=== PATIENT | female | born 1940 | race Caucasian/White ===

== ENCOUNTER 2024-04-29 08:13 | Inpatient (IN) ==
--- NOTE | 2024-01-17 11:53 | PAT Medication Instructions ---
Medication Instructions Date of Service January 17, 2024 Home Medications ascorbic acid (vitamin C) 1,000 mg tablet (Vitamin C) 1 g PO QAM calcium 600 mg (as carbonate)-vitamin D3 5 mcg (200 unit) tablet 1 tab PO QAM cholecalciferol (vitamin D3) 25 mcg (1,000 unit) tablet (Vitamin D3) 25 mcg PO TID cyanocobalamin (vitamin B-12) 1,000 mcg tablet (Vitamin B-12) 1,000 mcg PO QAM denosumab 60 mg/mL subcutaneous syringe (Prolia) 60 mg subcut UD ezetimibe 10 mg tablet 10 mg PO HS gabapentin 600 mg tablet 600 mg PO QPM irbesartan 150 mg-hydrochlorothiazide 12.5 mg tablet 1 tab PO QAM lactobacillus combination no.4 3 billion cell capsule (Probiotic) 3,000 mmu cells PO QAM pravastatin 20 mg tablet 20 mg PO QAM prednisolone acetate 1 % eye drops,suspension (Pred Forte) 1 drp ophthalmic (eye) UD valacyclovir 1 gram tablet 1,000 mg PO QPM Continue as directed denosumab 60 mg/mL subcutaneous syringe (Prolia) 60 mg subcut UD prednisolone acetate 1 % eye drops,suspension (Pred Forte) 1 drp ophthalmic (eye) UD DO NOT take the morning of surgery ascorbic acid (vitamin C) 1,000 mg tablet (Vitamin C) 1 g PO QAM calcium 600 mg (as carbonate)-vitamin D3 5 mcg (200 unit) tablet 1 tab PO QAM cholecalciferol (vitamin D3) 25 mcg (1,000 unit) tablet (Vitamin D3) 25 mcg PO TID cyanocobalamin (vitamin B-12) 1,000 mcg tablet (Vitamin B-12) 1,000 mcg PO QAM irbesartan 150 mg-hydrochlorothiazide 12.5 mg tablet 1 tab PO QAM lactobacillus combination no.4 3 billion cell capsule (Probiotic) 3,000 mmu cells PO QAM Take morning of surgery With a small sip of water, OTHERWISE NOTHING TO EAT OR DRINK AFTER MIDNIGHT: pravastatin 20 mg tablet 20 mg PO QAM Take evening before surgery cholecalciferol (vitamin D3) 25 mcg (1,000 unit) tablet (Vitamin D3) 25 mcg PO TID ezetimibe 10 mg tablet 10 mg PO HS gabapentin 600 mg tablet 600 mg PO QPM valacyclovir 1 gram tablet 1,000 mg PO QPM Other Notes If you have any questions please call us at [phone] or [phone] or [phone] or [phone]
--- NOTE | 2024-01-23 12:53 | Anesthesiology Consultation ---
Date of Service January 23, 2024 Assessment & Plan (1) Encounter for pre-operative examination: Infectious disease screening: Per assessment on 01/23/24- No known recent infectious disease contacts or current infectious disease symptoms. Chart Review Chart Review: Acceptable Risk for Surgery and Patient seen in Pre Admission Testing Teaching & Discussion Pre-Anesthesia Teaching/Discussion Notes: Instructed NPO after midnight before surgery,except medications with 15 cc of water. Medication instructions provided according to the PAT guidelines. History Surgery Operation Date: 02/22/24 11:25 Proposed Procedures p L5-S1 Decompression and Fusion with Spinal Cord Monitoring - Rene Estrada, Height/Weight Height: 5 ft 5 in Weight: 57.9 kg Allergies Allergy/AdvReac Type Severity Reaction Status Date / Time Penicillins Allergy Unknown Hives Verified 01/17/24 08:24 Medications Home Medications Medication Instructions Recorded Confirmed Last Taken ascorbic acid (vitamin C) 1,000 mg 1 g PO QAM 01/17/24 01/17/24 Unknown tablet (Vitamin C) calcium 600 mg (as 1 tab PO QAM 01/17/24 01/17/24 Unknown carbonate)-vitamin D3 5 mcg (200 unit) tablet cholecalciferol (vitamin D3) 25 25 mcg PO TID 01/17/24 01/17/24 Unknown mcg (1,000 unit) tablet (Vitamin D3) cyanocobalamin (vitamin B-12) 1,000 mcg PO QAM 01/17/24 01/17/24 Unknown 1,000 mcg tablet (Vitamin B-12) denosumab 60 mg/mL subcutaneous 60 mg subcut UD 01/17/24 01/17/24 Unknown syringe (Prolia) ezetimibe 10 mg tablet 10 mg PO HS 01/17/24 01/17/24 Unknown gabapentin 600 mg tablet 600 mg PO QPM 01/17/24 01/17/24 Unknown irbesartan 150 1 tab PO QAM 01/17/24 01/17/24 Unknown mg-hydrochlorothiazide 12.5 mg tablet lactobacillus combination no.4 3 3,000 mmu cells PO QAM 01/17/24 01/17/24 Unknown billion cell capsule (Probiotic) pravastatin 20 mg tablet 20 mg PO QAM 01/17/24 01/17/24 Unknown prednisolone acetate 1 % eye 1 drp ophthalmic (eye) UD 01/17/24 01/17/24 Unknown drops,suspension (Pred Forte) valacyclovir 1 gram tablet 1,000 mg PO QPM 01/17/24 01/17/24 Unknown Past Medical History Medical History Blindness Right eye, due to repeated herpes infection/ulcer Hypercholesterolemia Hypertension Osteoarthritis Exercise / Class Metabolic Activity II 4-5 Yardwork/Stairs/Walk up hill (one FS: No CP, no SOB) Past Surgical History Surgical History History of appendectomy History of eye surgery Right corneal transplant Follows with Dr Rhoades/DIXIE Craig History of tonsillectomy Past Anesthesia History No Hx of Anesthesia Complications and No Family Hx of Anesthesia Complications History of PONV No Hx of PONV and No Hx of Motion Sickness Social History Smoking Status: Never smoker Do You Dip or Chew Tobacco: No Hx Alcohol Use: Yes Alcohol type: wine alcohol intake frequency: 0-2 drinks per day (1 drink/day) Hx Substance Use: No substance use type: does not use Review of Systems Patient denies chest pain, shortness of breath, dyspnea on exertion, fever, chills, cough, wheezing. Physical Exam Vital Signs BP 122/69 P 64 TEMP 98.5 SP02 95%RA RESP 16 Physical Full cervical extension range of motion. Full TMJ range of motion. TMD 2.5 finger breaths (small chin) Mallampati Score II Dentition: intact, several caps Lungs: clear throughout to auscultation Cardiac: regular rate and rhythm, no murmurs noted Spine: normal Carotid arteries: negative bruit Extremities: no LE edema Lab Results Anesthesia Preop Results Results Anesthesia Widget: WBC 12.21 K/ul (4.8-10.8) H 01/23/24 Hgb 12.4 g/dl (12.0-16.0) 01/23/24 Hct 37.3 % (37.0-47.0) 01/23/24 Plt 377 K/uL (130-400) 01/23/24 Na 137 mmol/L (136-145) 01/23/24 K 4.9 mmol/L (3.5-5.1) 01/23/24 Cl 100 mmol/L (98-107) 01/23/24 CO2 32 mmol/L (21-32) 01/23/24 BUN 33 mg/dl (6-23) H 01/23/24 Creat 1.13 mg/dl (0.6-1.2) 01/23/24 Glucose Level 113 mg/dl (70-99(Fasting)) H 01/23/24 PT 10.0 Seconds (9.0-12.0) 01/23/24 PTT 23 Seconds (21-31) 01/23/24 INR 0.9 (0.9-1.1) 01/23/24 Urine Color Yellow 01/23/24 Urine Appearance Clear (Clear) 01/23/24 Urine pH 6.5 (4.5-7.5) 01/23/24 Urine Specific [place] 1.016 (1.000-1.030) 01/23/24 Urine Protein Negative (Negative) 01/23/24 Urine Glucose (UA) Negative (Negative) 01/23/24 Urine Ketones Negative (Negative) 01/23/24 Urine Blood Negative (Negative) 01/23/24 Urine Nitrite Negative (Negative) 01/23/24 Urine Bilirubin Negative (Negative) 01/23/24 Urine Urobilinogen Negative (Negative) 01/23/24 Urine Leukocyte Esterase 2+ (Negative) H 01/23/24 Urine WBC (Auto) 6-10 /hpf (0-5) H 01/23/24 Urine RBC (Auto) 0-2 /hpf (0-2) 01/23/24 Urine Hyaline Casts (Auto) 0-2 /lpf (0-2) 01/23/24 Urine Epithelial Cells (Auto) 0-2 /hpf (0-2) 01/23/24 Urine Bacteria (Auto) None Seen (None Seen) 01/23/24 Blood Type AB Positive 01/23/24 Antibody Screen NEGATIVE 01/23/24 Testing Laboratory Results Surgeon's office made aware of elevated WBC* Electrocardiogram Date: 10/31/23 SR with occasional PVCs at 79bpm. Possible LAE. Septal PA, probably old. Chest X-Ray Date: 01/23/24 FINDINGS: The lungs are hyperinflated. Cardiomediastinal silhouette is within normal limits. No pleural effusion or pneumothorax. Atherosclerotic plaque about the aortic arch. IMPRESSION: Hyperinflated lungs compatible with changes of COPD. No acute cardiopulmonary findings.
[~2024-04-29 08:13] MED LIST: ACETAMINOPHEN 500 MG TAB PO SCH; CeleBREX 200 MG CAP PO SCH; GABAPENTIN 300 MG CAP PO SCH; LR 15ML/HR IV SCH; LR 60ML/HR IV SCH; VANCOMYCIN HCL 1,000 MG/270 ML BAG IV SCH
[2024-04-29] MEDS ORDERED: LIDOCAINE 2% 2 ML VIAL/AMP(20MG/ML) INFIL ONE (08:39)
[2024-04-29] MEDS ORDERED: DEXAMETHASONE SOD INJ 4 MG/ML VIAL ONE (08:39)
[2024-04-29] MEDS ORDERED: fentaNYL citrate PF 100 MCG/2 ML VIAL ONE (08:40)
[2024-04-29] MEDS ORDERED: PROPOFOL IV EMULSION 10 MG/ML 20 ML VIAL IV ONE (08:40)
[2024-04-29] MEDS ORDERED: ONDANSETRON INJ 2 MG/ML 2 ML VIAL ONE (08:40)
[2024-04-29] MEDS ORDERED: ROCURONIUM BROMIDE 10 MG/ML 5 ML VIAL IV ONE (08:40)
[2024-04-29 09:07] LABS: Basophils # (auto) 0.05 K/uL (0.00-0.20); Basophils % (auto) 0.4 %; Eosinophils # (auto) 0.13 K/uL (0.00-0.50); Eosinophils % (auto) 1.1 %; Hematocrit (blood only) 39.8 % (37.0-47.0); Hemoglobin 13.4 g/dl (12.0-16.0); Immature Granulocytes # (auto) 0.04 K/uL (0.01-0.20); Immature Granulocytes % (auto) 0.3 %; Lymphocytes # (auto) 2.01 K/uL (1.20-3.40); Lymphocytes % (auto) 17.2 %; Mean Corpuscular Hemoglobin 32.1 pg (25.0-34.0); Mean Corpuscular Hgb Conc 33.7 g/dL (32.0-36.0); Mean Corpuscular Volume 95.4 fL (80.0-100.0); Mean Platelet Volume 8.5 fL (9.4-12.4); Monocytes # (auto) 0.79 K/uL (0.11-0.59); Monocytes % (auto) 6.7 %; Neutrophils # (auto) 8.69 K/uL (1.40-6.50); Neutrophils % (auto) 74.3 %; Platelet Count 332 K/uL (130-400); RDW Coefficient of Variation 12.5 % (11.5-14.5); RDW Standard Deviation 43.7 fL (36.4-46.3); Red Blood Count 4.17 M/uL (4.20-5.40); White Blood Count 11.71 K/ul (4.8-10.8)
[2024-04-29] MEDS: VANCOMYCIN HCL 1,000 MG/270 ML BAG IV SCH (09:08)
[2024-04-29] MEDS: CeleBREX 200 MG CAP PO SCH (09:08)
[2024-04-29] MEDS: GABAPENTIN 300 MG CAP PO SCH (09:08)
[2024-04-29] MEDS: LR 60ML/HR IV SCH (09:08)
[2024-04-29] MEDS: ACETAMINOPHEN 500 MG TAB PO SCH (09:08)
[2024-04-29 09:23] LABS: INR 0.9 (0.9-1.1); Partial Thromboplastin Ratio 0.9; Partial Thromboplastin Time 24 Seconds (21-31); Prothrombin Time 10.2 Seconds (9.0-12.0)
[2024-04-29] MEDS ORDERED: ONDANSETRON INJ 2 MG/ML 2 ML VIAL IV PRN ×2 (09:36→14:46)
[2024-04-29] MEDS ORDERED: fentaNYL citrate PF 100 MCG/2 ML VIAL IV PRN (09:36)
[2024-04-29] MEDS ORDERED: ATROPINE SULFATE 0.1 MG/ML 10ML SYR IV PRN (09:36)
[2024-04-29] MEDS ORDERED: ePHEDrine sulfate 50 MG/ML AMP IV PRN (09:36)
[2024-04-29] MEDS ORDERED: HYDROmorphone INJ 1 MG/ML SYRINGE IV PRN ×2 (09:36→14:46)
[2024-04-29 09:42] LABS: BUN Creatinine Ratio 22.3 (10-20); Calcium 9.5 mg/dl (8.6-10.3); Creatinine Clr Calc Pharmacy 39.4 ml/min; Potassium 3.9 mmol/L (3.5-5.1)
--- NOTE | 2024-04-29 11:07 | History & Physical Bridge Note ---
Date of Service April 29, 2024 History & Physical Bridge Note I have examined the patient, reviewed the History & Physical and in the interval since the performance of the History & Physical I have noted the following changes of clinical significance: no changes noted
--- NOTE | 2024-04-29 11:08 | History & Physical Report ---
Date of Service April 29, 2024 Assessment & Plan (1) Lumbosacral spondylosis with radiculopathy: Plan: L5-S1 decompression and fusion History of Present Illness Chief Complaint: Back and leg pain Primary Care Provider: Cinthya Rider PA-C This is an 84-year-old female who presents with chronic persistent back and leg pain after failing course of nonoperative care is here for surgical invention. Allergies Allergy/AdvReac Type Severity Reaction Status Date / Time Penicillins Allergy Severe Hives Verified 04/29/24 09:02 Home Medications Medication Instructions Recorded Confirmed Type ascorbic acid (vitamin C) 1,000 mg 1 g PO QPM 01/17/24 04/29/24 History tablet (Vitamin C) calcium 600 mg (as 1 tab PO QAM 01/17/24 04/29/24 History carbonate)-vitamin D3 5 mcg (200 unit) tablet cyanocobalamin (vitamin B-12) 1,000 mcg PO QPM 01/17/24 04/29/24 History 1,000 mcg tablet (Vitamin B-12) denosumab 60 mg/mL subcutaneous 60 mg subcut UD 01/17/24 04/29/24 History syringe (Prolia) ezetimibe 10 mg tablet 10 mg PO HS 01/17/24 04/29/24 History gabapentin 600 mg tablet 600 mg PO QAM 01/17/24 04/29/24 History irbesartan 150 1 tab PO QAM 01/17/24 04/29/24 History mg-hydrochlorothiazide 12.5 mg tablet lactobacillus combination no.4 3 3,000 mmu cells PO QAM 01/17/24 04/29/24 History billion cell capsule (Probiotic) pravastatin 20 mg tablet 20 mg PO QAM 01/17/24 04/29/24 History prednisolone acetate 1 % eye 1 drp ophthalmic (eye) UD 01/17/24 04/29/24 History drops,suspension (Pred Forte) valacyclovir 1 gram tablet 1,000 mg PO QAM 01/17/24 04/29/24 History carboxymethylcellulose sodium 1 % 2 drp ophthalmic (eye) BID PRN Dry 04/16/24 04/29/24 History eye liquid gel drops Eyes cholecalciferol (vitamin D3) 125 125 mcg PO BID 04/16/24 04/29/24 History mcg (5,000 unit) tablet (Vitamin D3) gabapentin 600 mg tablet 1,200 mg PO QDL 04/16/24 04/29/24 History gabapentin 600 mg tablet 600 mg PO HS 04/16/24 04/29/24 History Past Med/Surg History Problem List (Updated 04/29/24 @ 11:08 by Rene Estrada DO) Lumbosacral spondylosis with radiculopathy Medical History (Updated 04/29/24 @ 11:08 by Rene Estrada DO) Spinal stenosis Chronic back pain Osteoarthritis Blindness Right eye, due to repeated herpes infection/ulcer Hypercholesterolemia Hypertension Surgical History S/P epidural steroid injection Hx of hysterectomy History of tonsillectomy History of appendectomy History of eye surgery Right corneal transplant Follows with Dr Rhoades/DIXIE Craig Family History Other No family history of adverse response to anesthesia Social History Smoking Status: Never smoker Second Hand Exposure: No; Do You Dip or Chew Tobacco: No; Tobacco Cessation Education Requested by Patient: No Hx Alcohol Use: Yes Alcohol type: wine Hx Substance Use: No Preferred Language: Frisian Communication Ability: Effective 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
[2024-04-29] MEDS: ceFAZolin 330 MG/ML 1 GM VIAL ONE (12:02)
[2024-04-29] MEDS: BUPIVACAINE/EPINEPHRINE 0.5% MPF 1:200,000 30 ML VIAL ONE (12:02)
[2024-04-29] MEDS ORDERED: ePHEDrine sulfate 50 MG/5 ML SYR ONE (12:17)
[2024-04-29] MEDS ORDERED: SUGAMMADEX SODIUM 200 MG/2 ML VIAL IV ONE (12:39)
--- NOTE | 2024-04-29 12:49 | Operative Report ---
Post Operative Report Pre & Post Diagnosis Operation Date: 04/29/24 10:35 Pre-Op Diagnosis: #1 lumbar spondylosis with radiculopathy #2 lumbar spinal stenosis Post-Op Diagnosis: Same I identified the patient and participated in the time-out.: Yes Procedure Operation Date: 04/29/24 10:35 Actual Procedures #1 lumbar decompression with bilateral medial facetectomies and foraminotomies L4-L5 L5-S1. #2 posterior spinal fusion L5-S1. #3 placed posterior instrumentation L5-S1 using medic Creo. #4 interbody fusion L5-S1. #5 placement of Spira 11 x 26 mm x 2 at L5-S1. #6 placement locally harvested morselized autograft in the posterior gutters. #7 placement infuse collagen sponge, with Koros in the posterior lateral gutters and os design and interbody space. #8 application of versa wrap over the exposed dura. Surgeon Rene Estrada, Revenue Investigator Cora Cisse Estimated Blood Loss 50 Findings Consistent with Post-Op Diagnosis Specimens None Indications This is an 84-year-old female who presents with the above-mentioned diagnosis and failing course of nonoperative care is here for surgical invention. Description of Procedure Patient was met with identified informed consent obtained. Patient was then taken to the operative suite underwent intubation placed in a prone position on the K[place]it table top of the Alber frame. Operative promises well-padded eyes inspected to ensure no external pressure placed upon the. This point lumbar spine is prepped and draped sterile fashion. Sharp dissection with the assistance of Bovie cautery was formed down to and exposing the lamina transverse processes of L5 and the sacral ala bilaterally. Regardless cephalad fashion complete laminectomy of L5 was performed including bilateral medial facetectomies and foraminotomies addressing all neural compression. I then performed partial laminectomy of L4 with bilateral medial facetectomies to address all subarticular stenosis. Pedicle screws were then placed in L5-S1 bilaterally with assistance of fluoroscopy in the process luisa placed. By way of transfer approach on the right discectomy of L5-S1 was performed. Endplates guarded to subcortical mean bone and a 11 x 26 mm Spira cage filled with os designed tapped in position. Then proceeded the transforaminal region on the left. Again discectomy performed. Endplates guided to subcortical main bone and a second 11 x 26 mm spiral cage filled with os design bone graft tapped in position. The rods were then locked in final position bilaterally. The transverse processes of L5 and the sacral ala burred to subcortical the bone. Infuse collagen sponge, with Koros and local autograft placed in the posterior gutters. Versa wrap placed over the exposed dura. 15 round LUCIO drain inserted. Incision was then closed with 1 Vicryl the fascia 2-0 Vicryl subcutaneously and 4 Monocryl for final skin closure. Steri-Strips and sterile dressing placed. Patient waken taken to PACU in stable condition. Please note spinal cord monitoring was utilized at the procedure no changes noted. Cora Cisse was present at the entire surgery and while the patient positioning complex portion of the surgery and final skin closure. I attest to the content of the Intraoperative Record and any orders documented therein. Any exceptions are noted below.
--- NOTE | 2024-04-29 13:07 | Fluoroscopy Report ---
FL lumbar spine 2-3V CLINICAL HISTORY: L5-S1 DECOMPRESSION AND FUSION COMPARISON STUDY: None. FLUOROSCOPY TIME: 20 seconds. Ka,r: 12.22 mGy FLUOROSCOPIC IMAGES: 2 FINDINGS: Fluoroscopy was provided during L5-S1 discectomy with interbody spacer placement, posterior decompression and bilateral pedicle screw fusion. IMPRESSION: Fluoroscopy provided during L5-S1 decompression and fusion. ACT 112: Negative or not required by law. Electronically signed by: Raheem Martinez M.D. 04/29/2024 1:06 PM
--- NOTE | 2024-04-29 13:53 | Anesthesiology Progress Note ---
Date of Service April 29, 2024 Anesthesia Post Procedure Vital Signs Vital Signs: Temp Pulse Pulse Resp BP Pulse Ox O2 Del Method 04/29/24 13:40 61 12 139/59 L 95 Nasal Cannula 04/29/24 13:30 58 L 19 139/60 95 Nasal Cannula 04/29/24 13:20 58 L 20 146/81 H 99 Oxymask 04/29/24 13:10 56 L 15 144/83 H 100 Oxymask 04/29/24 13:01 36.2 C L 62 12 165/77 H 100 Oxymask 04/29/24 08:57 37.1 C 69 20 163/68 H 95 Room Air O2 Flow Rate 04/29/24 13:40 2 04/29/24 13:30 2 04/29/24 13:20 6 04/29/24 13:10 8 04/29/24 13:01 8 04/29/24 08:57 Pain Intensity Right Back: Pain Intensity: 2 Back: Pain Intensity: 4 Transfer of Care Handoff Completed per policy Notes Mental Status: alert / awake / arousable and participated in evaluation Patient Amnestic to Procedure: Yes Nausea / Vomiting: adequately controlled Pain: adequately controlled Airway Patency, RR, SpO2: stable & adequate BP & HR: stable & adequate Hydration State: stable & adequate Anesthetic Complications: no major complications apparent and Pt Satisfied with anesthetic care
[2024-04-29] MEDS ORDERED: FAMOTIDINE 20 MG TAB PO PRN (14:46)
[2024-04-29] MEDS ORDERED: ONDANSETRON 4 MG OD TAB PO PRN (14:46)
[2024-04-29] MEDS ORDERED: LORazepam 2 MG/1 ML VIAL IV PRN (14:46)
[2024-04-29] MEDS ORDERED: oxyCODONE HCL IR 5 MG TAB (IMMEDIATE RELEASE) PO PRN (14:46)
[2024-04-29] MEDS ORDERED: ACETAMINOPHEN 1,000 MG/100 ML VIAL IV PRN (14:46)
[2024-04-29] MEDS ORDERED: diphenhydrAMINE Capsule 25 MG CAP PO PRN (14:46)
[2024-04-29] MEDS ORDERED: DO NOT ADMINISTER FLU VACCINE PRN (14:46)
[2024-04-29] MEDS ORDERED: SOD PHOSPHATE/SOD BIPHOSPHATE ENEMA 132 ML BTL PR PRN (14:46)
[2024-04-29] MEDS ORDERED: NALOXONE HCL 0.4 MG/1 ML VIAL/CARP IV PRN (14:46)
[2024-04-29] MEDS ORDERED: bisacodyL 10 MG SUPP PR PRN (14:46)
[2024-04-29] MEDS ORDERED: PROMETHAZINE 12.5 MG/50.5 ML BAG IV PRN (14:46)
[2024-04-29] MEDS ORDERED: hydrOXYzine HCl 25 MG TAB PO PRN (14:46)
[2024-04-29] MEDS ORDERED: DO NOT ADMINISTER PNEUMOCOCCAL VACCINE PRN (14:46)
[2024-04-29] MEDS ORDERED: METOCLOPRAMIDE HCL INJ 5 MG/ML 2 ML VIAL IV PRN (14:46)
[2024-04-29] MEDS ORDERED: ALUMINUM/MAGNESIUM SUSP 30 ML UDC PO PRN (14:46)
[2024-04-29] MEDS ORDERED: LORazepam 0.5 MG TAB PO PRN (14:46)
[2024-04-29] MEDS ORDERED: ARTIFICIAL TEARS OPB PRN (14:56)
[2024-04-29] MEDS: FLOSEAL HEMOSTATIC MATRIX 10ML TOP ONE (14:57)
[2024-04-29] MEDS: HYDROmorphone INJ 0.5 MG/0.5 ML SYR IV PRN (15:06)
--- NOTE | 2024-04-29 15:19 | Hospitalist Consultation ---
<Statement entered by Chago Collier DO - 04/29/24 16:42> I have seen and examined the patient and have discussed the case with the advance practice provider. I have reviewed the advanced practitioner's documentation, and I agree with, and take responsibility for that plan of care. Patient reports postoperatively her pain is well-controlled. Has no other immediate issues or complaints. Lungs: Decreased CV: S1-S2, regular Continue medical plan of care as outlined below I spent a total of 14 minutes coordinating, documenting, and providing care for this patient excluding time spent by another provider/QHP. Date of Consultation April 29, 2024 Assessment & Plan (1) Lumbosacral spondylosis with radiculopathy: (2) Spinal stenosis: (3) Chronic back pain: - POD # 1 for L4-S1 decompression fusion by Dr. Estrada - Pain management, bowel regimen and DVT ppx per the primary team - PT/OT consults - pt prefers home health to be set up and outpt PT near her home in [place] at time of dc. - Follow am CBC to monitor for acute blood loss, hgb today 13.4 - Pt took valcyclovir for herpetic zoster prophylaxis on 04/28. Hx of R eye involvement. (4) Hypertension: - May continue on irbesartan/HCTZ, BP well controlled currently 134/74 (5) Hypercholesterolemia: - Home meds pravastatin, ezetimibe DVT ppx: teds, scds Lines: PIV x1 FEN/GI: Clears, advance as tolerated CODE: Full Dispo: From home, likely to remain in the hospital x 1-2 days A total of {} minutes were spent with greater than 50% of that time face to face with the patient, personally reviewing all current laboratories, imaging studies, past medication reconciliation, outpatient chart review, and discussion with specialists to collaborate care for the patient with attending. Please see attending documentation for corrections and/or additions. History of Present Illness Reason for Consultation: Medical management Requesting Physician: Dr. Estrada Attending Physician: Rene Estrada DO History of Present Illness This is an 84-year-old female with PMHx of HTN, HLD, CKD, COPD, deficiency, Quinn's thyroiditis/thyroid goiter, vitamin D deficiency, right sciatic nerve, piriformis muscle syndrome, lumbar stenosis, osteoporosis, presents to the hospital for elective L4-S1 lumbar decompression fusion by Dr. Estrada on 04/29/2024. Patient states that she is doing well, denies any acute pain. Her son, Josiah is present with her at bedside. She states normal bowel movements occur once daily and last BM was yesterday on 04/28. Has not yet trialed clear liquid diet but reports being very hungry. She does not require any supplemental O2 at baseline. Patient notes that she did take valacyclovir dose for right eye herpes zoster/shingles prophylaxis yesterday. Denies any complaints in vision, pain, blisters. She lives at home with son who is present at bedside. Pt was very independent participating in all ADLs prior to hospitalization here for lumbar back surgery. She walks independently. They would like to have home health/outpatient physical therapy at time of discharge. Allergies Allergy/AdvReac Type Severity Reaction Status Date / Time Penicillins Allergy Severe Hives Verified 04/29/24 09:02 Home Medications Medication Instructions Recorded Confirmed Type ascorbic acid (vitamin C) 1,000 mg 1 g PO QPM 01/17/24 04/29/24 History tablet (Vitamin C) calcium 600 mg (as 1 tab PO QAM 01/17/24 04/29/24 History carbonate)-vitamin D3 5 mcg (200 unit) tablet cyanocobalamin (vitamin B-12) 1,000 mcg PO QPM 01/17/24 04/29/24 History 1,000 mcg tablet (Vitamin B-12) denosumab 60 mg/mL subcutaneous 60 mg subcut UD 01/17/24 04/29/24 History syringe (Prolia) ezetimibe 10 mg tablet 10 mg PO HS 01/17/24 04/29/24 History gabapentin 600 mg tablet 600 mg PO QAM 01/17/24 04/29/24 History irbesartan 150 1 tab PO QAM 01/17/24 04/29/24 History mg-hydrochlorothiazide 12.5 mg tablet pravastatin 20 mg tablet 20 mg PO QAM 01/17/24 04/29/24 History prednisolone acetate 1 % eye 1 drp ophthalmic (eye) UD 01/17/24 04/29/24 History drops,suspension (Pred Forte) valacyclovir 1 gram tablet 1,000 mg PO QAM 01/17/24 04/29/24 History carboxymethylcellulose sodium 1 % 2 drp ophthalmic (eye) BID PRN Dry 04/16/24 04/29/24 History eye liquid gel drops Eyes cholecalciferol (vitamin D3) 125 125 mcg PO BID 04/16/24 04/29/24 History mcg (5,000 unit) tablet (Vitamin D3) gabapentin 600 mg tablet 1,200 mg PO QDL 04/16/24 04/29/24 History gabapentin 600 mg tablet 600 mg PO HS 04/16/24 04/29/24 History Patient History Medical History (Updated 04/29/24 @ 11:08 by Rene Estrada DO) Spinal stenosis Chronic back pain Osteoarthritis Blindness Right eye, due to repeated herpes infection/ulcer Hypercholesterolemia Hypertension Surgical History S/P epidural steroid injection Hx of hysterectomy History of tonsillectomy History of appendectomy History of eye surgery Right corneal transplant Follows with Dr Rhoades/DIXIE Craig Family History Other No family history of adverse response to anesthesia Social History Smoking Status: Never smoker Second Hand Exposure: No; Do You Dip or Chew Tobacco: No; Tobacco Cessation Education Requested by Patient: No Hx Alcohol Use: Yes Alcohol type: wine Hx Substance Use: No Preferred Language: Citizen Of [place] Communication Ability: Effective 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 Required: No Beliefs That Will Affect Care: None Current Living Situation: Family Current Living Situation Comment: lives with son Other Information That Helps Us Care for You: No Feels Safe at Home: Yes Safety Concerns: Feels Safe At This Time Assistive Devices: None Review of Systems Review of Systems: Constitutional: No fever, sweats or chills Eyes: No diplopia, no worsening or blurred vision ENT: normal hearing, no trouble swallowing Respiratory: No cough, sputum, dyspnea at rest or on exertion Cardiovascular: No chest pain, tightness or palpitations Abdomen: No pain, nausea, vomiting, diarrhea or constipation Musculoskeletal: No joint pain, calf pain, swelling Neurologic: No weakness, numbness/tingling, or balance problems Psychiatric: No anxiety or depression Skin: No rash or itch Physical Exam Physical Exam: General: awake, alert, no apparent distress, elderly white female, thin Head: Normocephalic, atraumatic ENT: PERRL, EOMI, no pharyngeal exudate, mucous membranes moist Chest: Clear to auscultation, on room air, no adventitious breath sounds Cardiac: Regular rate and rhythm, no murmur, no JVD, normal peripheral pulses, good capillary refill Abdominal: NABS x 4 quadrants, soft, nondistended, nontender to palpation, no rebound or guarding Back: Dressing C/D/I, LUCIO drain with serosanguineous outs : No Alvarado catheter present Extremities: Normal inspection, no peripheral edema or erythema, calfs nontender to palpation Psych: Normal mood and affect Neuro: AAO x 3, strength intact bilaterally and rated 5/5, no motor deficits, speech is clear, no peripheral sensory deficits Results & Data Results & Data Vital Signs (Past 12 Hours) Vital Signs Temp Pulse Pulse Resp BP Pulse Ox O2 Del Method 04/29/24 15:05 62 18 147/79 H 96 Nasal Cannula 04/29/24 14:40 36.4 C L 62 18 134/72 92 Nasal Cannula 04/29/24 14:15 57 L 15 137/62 98 Nasal Cannula 04/29/24 14:00 67 14 126/64 100 Nasal Cannula 04/29/24 13:45 36.4 C L 57 L 16 151/56 H 99 Nasal Cannula 04/29/24 13:40 61 12 139/59 L 95 Nasal Cannula 04/29/24 13:30 58 L 19 139/60 95 Nasal Cannula 04/29/24 13:20 58 L 20 146/81 H 99 Oxymask 04/29/24 13:10 56 L 15 144/83 H 100 Oxymask 04/29/24 13:01 36.2 C L 62 12 165/77 H 100 Oxymask 04/29/24 08:57 37.1 C 69 20 163/68 H 95 Room Air O2 Flow Rate 04/29/24 15:05 2 04/29/24 14:40 2 04/29/24 14:15 2 04/29/24 14:00 2 04/29/24 13:45 2 04/29/24 13:40 2 04/29/24 13:30 2 04/29/24 13:20 6 04/29/24 13:10 8 04/29/24 13:01 8 04/29/24 08:57
[2024-04-29 18:19] LABS: Appearance Urine Clear (Clear); Bacteria Urine Automated None Seen (None Seen); Bilirubin Urine Negative (Negative); Blood Urine Trace (Negative); Color Urine Yellow; Epithelial Cell Urine Auto 0-2 /hpf (0-2); Glucose Urine UA Trace (Negative); Ketones Urine Trace (Negative); Leukocyte Esterase Urine Negative (Negative); Mucus Urine Present (None Prsent); Nitrite Urine Negative (Negative); Protein Urine Trace (Negative); RBC Urine Automated 0-2 /hpf (0-2); Specific Gravity Urine 1.029 (1.000-1.030); Urobilinogen Urine Negative (Negative); WBC Urine Automated 0-5 /hpf (0-5)
[2024-04-29] MEDS: CLINDAMYCIN/D5W 600 MG/50 ML BAG IV SCH (18:35)
[2024-04-29] MEDS: DOCUSATE SODIUM/SENNA 50/8.6MG TAB PO SCH (20:22)
[2024-04-29] MEDS: CHOLECALCIFEROL 125 MCG (5,000 UNITS) TAB PO SCH (20:22)
[2024-04-29] MEDS: CYANOCOBALAMIN (B-12) 500 MCG TABLET PO SCH (20:22)
[2024-04-29] MEDS: GABAPENTIN 600 MG TAB PO SCH (20:22)
[2024-04-29] MEDS: EZETIMIBE 10 MG TAB PO SCH (20:22)
[2024-04-30] MEDS: POLYETHYLENE (MIRALAX) 17 GM PACK PO SCH (06:19)
[2024-04-30] MEDS: CALCIUM 600MG + VIT D 400 IU TAB PO SCH (07:37)
[2024-04-30] MEDS: PRAVASTATIN SOD 20 MG TAB PO SCH (07:38)
[2024-04-30] MEDS: ADVANCED PROBIOTIC 625 MG CAPSULE PO SCH (07:38)
[2024-04-30] MEDS: LOSARTAN POTASSIUM 50 MG TAB PO SCH (07:42)
[2024-04-30] MEDS: hydroCHLOROthiazide 25 MG TAB PO SCH (07:42)
[2024-04-30] MEDS: GABAPENTIN 600 MG TAB PO SCH ×2 (07:42→14:22)
[2024-04-30] MEDS: valACYclovir HCL 500 MG TABLET PO SCH (07:43)
[2024-04-30] MEDS: traMADol HCL 50 MG TABLET PO PRN (07:47)
[2024-04-30] MEDS: ACETAMINOPHEN 500 MG TAB PO PRN (07:47)
[2024-04-30 08:07] LABS: Basophils # (auto) 0.02 K/uL (0.00-0.20); Basophils % (auto) 0.1 %; Eosinophils # (auto) 0.01 K/uL (0.00-0.50); Eosinophils % (auto) 0.1 %; Hematocrit (blood only) 32.3 % (37.0-47.0); Hemoglobin 10.7 g/dl (12.0-16.0); Immature Granulocytes # (auto) 0.12 K/uL (0.01-0.20); Immature Granulocytes % (auto) 0.6 %; Lymphocytes # (auto) 1.42 K/uL (1.20-3.40); Lymphocytes % (auto) 7.5 %; Mean Corpuscular Hemoglobin 32.1 pg (25.0-34.0); Mean Corpuscular Hgb Conc 33.1 g/dL (32.0-36.0); Monocytes # (auto) 1.77 K/uL (0.11-0.59); Monocytes % (auto) 9.4 %; Neutrophils # (auto) 15.56 K/uL (1.40-6.50); Neutrophils % (auto) 82.3 %; Platelet Count 300 K/uL (130-400); RDW Coefficient of Variation 12.5 % (11.5-14.5); RDW Standard Deviation 44.6 fL (36.4-46.3); Red Blood Count 3.33 M/uL (4.20-5.40)
[2024-04-30 08:32] LABS: BUN Creatinine Ratio 27.6 (10-20); Calcium 8.9 mg/dl (8.6-10.3); Creatinine Clr Calc Pharmacy 42.5 ml/min; Potassium 4.2 mmol/L (3.5-5.1)
[2024-04-30] MEDS ORDERED: NON-FORMULARY MEDICATION (Irbesartan-Hydrochlorothiazide 150-12.5 mg Tablet) PO SCH (09:00)
--- NOTE | 2024-04-30 09:38 | Orthopedic Progress Note ---
Date of Service April 30, 2024 Assessment & Plan (1) Lumbosacral spondylosis with radiculopathy: Plan: At this time we will initiate physical therapy monitor LUCIO output anticipate discharge home in the next few days. Admission and Anticipated Discharge Date Admission Date: April 29, 2024 Subjective Patient's back pain is controlled leg pain markedly improved Physical Exam Physical Exam: Patient is in the chair at the bedside. Is comfortable. Is constricted testing. Results & Data Vital Signs (Past 12 Hours) Vital Signs Temp Pulse Resp BP Pulse Ox O2 Del Method O2 Flow Rate 04/30/24 08:11 36.8 C 63 18 119/55 L 96 Room Air 04/30/24 02:59 36.5 C 65 18 104/58 L 98 Nasal Cannula 1 04/29/24 23:17 36.4 C L 65 18 113/69 98 Nasal Cannula 1
[2024-04-30] MEDS: dexAMETHasone 4 MG in SYRINGE 0 ML IV SCH (09:41)
--- NOTE | 2024-04-30 10:44 | Hospitalist Progress Note ---
Date of Service April 30, 2024 Assessment & Plan (1) Lumbosacral spondylosis with radiculopathy: (2) Spinal stenosis: (3) Chronic back pain: Plan: POD # 1 for L4-S1 decompression fusion by Dr. Estrada Pain management DVT ppx per Primary Surgical team Hb is 10.7 today. Likely from op blood loss plus dilutional Leukocytosis today may be reactive Monitor PT/OT (4) Hypertension: Plan: - May continue on irbesartan/HCTZ, BP well controlled currently 134/74 (5) Hypercholesterolemia: Plan: Continue home pravastatin, ezetimibe I spent a total of 40 minutes coordinating, documenting and providing care for this patient excluding time spent in performance of separately billed services Admission and Anticipated Discharge Date Admission Date: April 29, 2024 Subjective Patient seen and examined Reports surgical site pain is well controlled Reports mild sore throat, post op but improving Yet to have a BM but passing flatus Denied other complaints Physical Exam Constitutional: + well hydrated; no acute distress Eyes: PERRL, conjunctivae normal, anicteric sclerae ENMT: external ear and nose normal, oropharynx normal Respiratory: normal respiratory effort, lungs clear to auscultation Cardiovascular: Rate/Rhythm: regular rate and regular rhythm Gastrointestinal (Abdomen): normal bowel sounds, soft, nontender, no hepatosplenomegaly Musculoskeletal: Clean dressing over surgical site with drain in situ Neurologic: PERRL, EOMI, accommodation nl, no face palsy, no dysarthria Psychiatric: A+Ox3, euthymic affect Results & Data Results & Data Vital Signs (Past 12 Hours) Vital Signs Temp Pulse Resp BP Pulse Ox O2 Del Method O2 Flow Rate 04/30/24 08:11 36.8 C 63 18 119/55 L 96 Room Air 04/30/24 02:59 36.5 C 65 18 104/58 L 98 Nasal Cannula 1 04/29/24 23:17 36.4 C L 65 18 113/69 98 Nasal Cannula 1 Laboratory Results Abnormal lab results 04/29/24 04/30/24 Range/Units Unknown 07:18 WBC 18.90 H (4.8-10.8) K/ul RBC 3.33 L (4.20-5.40) M/uL Hgb 10.7 L (12.0-16.0) g/dl Hct 32.3 L (37.0-47.0) % MPV 9.0 L (9.4-12.4) fL Neut # (Auto) 15.56 H (1.40-6.50) K/uL Wayne # (Auto) 1.77 H (0.11-0.59) K/uL BUN 24 H (6-23) mg/dl BUN/Creatinine Ratio 27.6 H (10-20) Glucose 105 H (70-99(Fasting)) mg/dl Urine Protein Trace H (Negative) Urine Glucose (UA) Trace H (Negative) Urine Ketones Trace H (Negative) Urine Blood Trace H (Negative) U Hyaline Cast (Auto) 3-5 H (0-2) /lpf Urine Mucus Present A (None Prsent)
[2024-05-01 07:53] LABS: Hematocrit (blood only) 32.6 % (37.0-47.0); Hemoglobin 10.9 g/dl (12.0-16.0); Mean Corpuscular Hemoglobin 32.6 pg (25.0-34.0); Mean Corpuscular Hgb Conc 33.4 g/dL (32.0-36.0); Mean Corpuscular Volume 97.6 fL (80.0-100.0); Platelet Count 314 K/uL (130-400); RDW Coefficient of Variation 12.8 % (11.5-14.5); RDW Standard Deviation 45.4 fL (36.4-46.3); Red Blood Count 3.34 M/uL (4.20-5.40)
[2024-05-01] MEDS: prednisoLONE acetate 1% OP SUSP 5 ML BTL OPR SCH (08:02)
[2024-05-01 08:05] LABS: BUN Creatinine Ratio 30.3 (10-20); Calcium 9.9 mg/dl (8.6-10.3); Creatinine Clr Calc Pharmacy 37.4 ml/min; Potassium 3.8 mmol/L (3.5-5.1)
--- NOTE | 2024-05-01 08:28 | Orthopedic Progress Note ---
Date of Service May 01, 2024 Assessment & Plan (1) Lumbosacral spondylosis with radiculopathy: Plan: At this time we will continue physical therapy monitor her progress hopefully discharge home tomorrow. Admission and Anticipated Discharge Date Admission Date: April 29, 2024 Subjective Patient's back pain is controlled leg symptoms markedly improved. She tolerated physical therapy well yesterday. Physical Exam Physical Exam: On exam she is in the chair at the bedside. She is comfortable. Good strength testing. Results & Data Vital Signs (Past 12 Hours) Vital Signs Temp Pulse Resp BP Pulse Ox O2 Del Method 05/01/24 07:44 36.8 C 55 L 18 137/82 95 Room Air 04/30/24 20:41 36.7 C 65 16 114/67 94 Room Air
[2024-05-01] MEDS: MAGNESIUM HYDROXIDE SUSP 30 ML UDC PO PRN (13:05)
--- NOTE | 2024-05-01 16:43 | Hospitalist Progress Note ---
Date of Service May 01, 2024 Assessment & Plan (1) Lumbosacral spondylosis with radiculopathy: (2) Spinal stenosis: (3) Chronic back pain: Plan: Per previous hospitalist notes with addendum POD # 1 for L4-S1 decompression fusion by Dr. Estrada Pain management DVT ppx per Primary Surgical team Hb is 10.7 today. Likely from op blood loss plus dilutional Leukocytosis today may be reactive Monitor PT/OT 05/01 Hemoglobin stable at 10.9 Management of hypertension per below (4) Hypertension: Plan: - May continue on irbesartan/HCTZ, BP well controlled currently 134/74 05/01 Patient reports having low blood pressure at home Currently blood pressure is on the lower side, 94/52 Hold losartan and HCTZ May only need losartan 25 mg p.o. daily upon discharge Monitor blood pressure trend (5) Hypercholesterolemia: Plan: Continue home pravastatin, ezetimibe Admission and Anticipated Discharge Date Admission Date: April 29, 2024 Subjective ff up s/p back surgery, etc seen resting in bed, comfortable states she feels fine overall minimal back pain ambulating in the halls with no dizziness, etc Review of Systems Review of Systems: all noted and negative except for above Physical Exam Physical Exam: General- oriented x 3, not in distress, speaks in sentences with no effort or accessory muscle use Eyes- anicteric Neck- no JVD Lungs- clear breath sounds bilaterally, no rales/wheezes Heart- normal rate, regular rhythm; no murmurs Abdomen- normal bowel sounds, nondistended, soft, nontender Extremities- no pretibial edema, no calf tenderness Neuro- alert, oriented x 3; no gross focal neurologic deficits Skin- warm & dry Results & Data Results & Data Vital Signs (Past 12 Hours) Vital Signs Temp Pulse Resp BP Pulse Ox O2 Del Method 05/01/24 15:12 36.6 C 60 18 94/52 L 94 Room Air 05/01/24 07:44 36.8 C 55 L 18 137/82 95 Room Air all noted and reviewed including below
[2024-05-01 19:15] VITALS: TEMP 98.1
[2024-05-02 07:10] VITALS: BP 138/72; PULSE 58; RESP 16; O2SAT 94
--- NOTE | 2024-05-02 09:04 | Discharge Summary ---
Date of Service May 02, 2024 Admission HPI Per Admitting Provider This is an 84-year-old female who presents with chronic persistent back and leg pain after failing course of nonoperative care is here for surgical invention. Discharge Data Consultations 04/29/24 14:46 Consult Hospitalist Routine Procedures Performed Operation Date: 04/29/24 10:35 Actual Procedures p L5-S1 Decompression and Fusion with Spinal Cord Monitoring(Not Applicable) - Rene Estrada DO Hospital Course (1) Lumbosacral spondylosis with radiculopathy: Patient is a pleasant 84-year-old female history physical examination radiographic images consistent with the above-mentioned diagnosis. For this reason she brought to the operating room on 04/29/2024 and undergone a lumbar decompression and fusion at L5-S1. This performed by Dr. Estrada under general anesthesia. She left the operating room LUCIO drain in place and was transferred to PACU in stable condition. She was then transferred to the orthopedic floor she has been seen by physical therapy postoperative her 1. Throughout her hospital course her calves remain supple nontender her abdomen remains supple and nontender none postop #3 she is deemed safe for home discharge. Her discharge instructions were devoid any full bending at the waist she should have anything heavier than 5 to 7 pounds. She is needed to change her dressing once daily until there is no drainage when there is no drainage she can leave it open to air and may shower. She may utilize Tylenol and tramadol for pain control. She is peyman be seen in the office approximately 2 weeks out from surgery or sooner if she notes any increased pain, fever, chills, or drainage from the incision.
--- NOTE | 2024-05-02 18:53 | Hospitalist Progress Note ---
Date of Service May 02, 2024 Assessment & Plan (1) Lumbosacral spondylosis with radiculopathy: (2) Spinal stenosis: (3) Chronic back pain: Plan: Per previous hospitalist notes with addendum POD # 1 for L4-S1 decompression fusion by Dr. Estrada Pain management DVT ppx per Primary Surgical team Hb is 10.7 today. Likely from op blood loss plus dilutional Leukocytosis today may be reactive Monitor PT/OT 05/01 Hemoglobin stable at 10.9 Management of hypertension per below Acute blood loss anemia (4) Hypertension: Plan: - May continue on irbesartan/HCTZ, BP well controlled currently 134/74 05/01 Patient reports having low blood pressure at home Currently blood pressure is on the lower side, 94/52 Hold losartan and HCTZ May only need losartan 25 mg p.o. daily upon discharge Monitor blood pressure trend (5) Hypercholesterolemia: Plan: Continue home pravastatin, ezetimibe Admission and Anticipated Discharge Date Admission Date: April 29, 2024 Results & Data Results & Data Vital Signs (Past 12 Hours) Vital Signs Temp Pulse Resp BP Pulse Ox O2 Del Method 05/02/24 09:50 36.7 C 58 L 16 138/72 94 05/02/24 07:10 36.7 C 58 L 16 138/72 94 Room Air
== END 2024-05-02 12:12 | disposition home or self-care (01) | DRG 402 ==
LOC: ASU 08:13 → 3W 12:52